=== PATIENT | male | born 1985 | race African-American/Black ===

== ENCOUNTER 2016-10-22 00:49 | Emergency (ER) | payer OTHER ==
[~2016-10-22 00:49] MED LIST: AUGMENTIN PO; ELIMITE60 GM TOP; MEDROL PO; MEDROL4 MG/DOSE- PO
== END 2016-10-22 02:08 | disposition home or self-care (01) ==
LOC: CED 00:49
DX: B86 Scabies (principal)
CPT/HCPCS: 99283